=== PATIENT | male | born 1970 | race Caucasian/White ===

== ENCOUNTER → 2023-10-01 06:26 | Day surgery (SDC) | payer OTHER, SELFPAY | LOC: GI 06:26 | PROVIDERS: ATTENDING PHYSICIAN Internal Medicine Gastroenterology | DX: Z12.11 Encounter for screening for malignant neoplasm of colon (principal); R19.5 Other fecal abnormalities; K62.1 Rectal polyp; K63.5 Polyp of colon | CPT/HCPCS: 45385; 88305 ==